=== PATIENT | male | born 1980 | race Native Hawaiian/Other Pacific Islander ===

== ENCOUNTER 2017-09-24 15:03 | Outpatient (CLI) | payer BC ==
[2017-09-24 15:23] LABS: PLATELET COUNT 167 K/uL (142-355)
[2017-09-24 16:11] LABS: POTASSIUM 3.9 mmol/L (3.6-5.2)
== END 2017-09-24 23:34 | disposition home or self-care (01) ==
LOC: LABW 15:03
PROVIDERS: Nurse Practitioner Family
DX: R10.31 Right lower quadrant pain (principal)
CPT/HCPCS: 36415; 80053; 85027; Q9963